=== PATIENT | female | born 1975 | race Hispanic/Latino ===

== ENCOUNTER 2022-03-04 10:32 | Emergency (ER) | payer BC, SELFPAY | END 2022-03-04 13:35 | disposition home or self-care (01) | LOC: ERS 10:32 | DX: M54.31 Sciatica, right side (principal) ==

== ENCOUNTER 2025-04-23 11:10 | Outpatient (CLI) | payer BC | END 2025-04-23 11:11 | disposition home or self-care (01) | LOC: SCSRAD 11:10 | PROVIDERS: ATTEND Family Medicine | DX: M25.561 Pain in right knee (principal); G89.29 Other chronic pain; M17.11 Unilateral primary osteoarthritis, right knee ==